=== PATIENT | female | born 1995 | race Caucasian/White ===

== ENCOUNTER → 2018-07-15 12:41 | Outpatient (CLI) | payer OTHER, MEDICAID, SELFPAY ==
--- NOTE | 2018-07-15 12:45 | DI.RAD.S_ITS ---
PROCEDURE: XR TOE LT MIN 2V INDICATIONS: LEFT toe pain TECHNIQUE: 3 views of the fifth toe(s) acquired. COMPARISON: None. FINDINGS: Bones: No fractures or dislocations. No suspicious bony lesions. Bipartite medial sesamoid. Soft tissues: No suspicious soft tissue densities. IMPRESSION: No fracture or dislocation. If clinical symptoms persist or clinical suspicion for pathology is high, a repeat examination in 7-10 days is suggested for further evaluation. Dictated by: Sincere Scott M.D. on 07/15/2018 at 13:25 Approved by: Sincere Scott M.D. on 07/15/2018 at 13:26
== END ==
PROVIDERS: Visit Provider Physician Assistant
DX: M79.675 Pain in left toe(s) (principal)
CPT/HCPCS: 73660

== ENCOUNTER 2018-11-22 20:03 | Emergency (ER) | payer OTHER, MEDICAID, SELFPAY ==
[2018-11-22 20:11] VITALS: BP 133/82; PULSE 89; RESP 18; TEMP 36.9; O2SAT 99
--- NOTE | 2018-11-22 20:17 | ED_ITS ---
HPI - Skin/Abscess/Foreign Bdy <JOSE Mooney - Last Filed: 11/22/18 21:11> General Chief complaint: Skin/Abscess/Foreign Body Stated complaint: spider bite on left leg Time Seen by Provider: 11/22/18 20:03 Source: patient Mode of arrival: ambulatory Limitations: no limitations History of Present Illness HPI narrative: This is a 23-year-old pleasant lady, previoius smoker, without significant medical history presents in chief complaining of left posterior lateral lower leg itching, discomfort, redness, swelling. She thinks this is from a spider bite. However, she had not witnessed seeing spider. Initially, the patient reports left posterior lateral ankle itchiness and she has been using Benadryl cream for this. She noticed progressively worsening with redness, swelling, warmth, some discomfort spreading to mid posterior calf at work this afternoon when she lifted her pants to scratch the area. She denies fever, chills, short of breath, chest pain, nausea or vomiting. She reports her last tetanus immunization was 2-3 years ago. She uses IUD for control method. Related Data Home Medications Medication Instructions Recorded Confirmed levonorgestrel 20 mcg/24 hours (5 INTRAUTERINE each 05/29/18 07/15/18 yrs) 52 mg intrauterine device Previous Rx's Medication Instructions Recorded sulfamethoxazole-trimethoprim 1 tab PO BID 7 Days #14 tab 11/22/18 [Bactrim DS] Allergies Allergy/AdvReac Type Severity Reaction Status Date / Time No Known Drug Allergies Allergy Verified 07/15/18 12:18 Review of Systems <JOSE Mooney - Last Filed: 11/22/18 21:11> Review of Systems General: See HPI HEENT: Denies sinus pain, ear pain, sore throat, difficulty swallowing, dizziness. Respiratory: Denies dyspnea, cough, wheezing, hemoptysis, sputum. Cardiovascular: Denies chest pain, palpitations, orthopnea, edema. Gastrointestinal: Denies nausea, vomiting, abdominal pain, diarrhea, constipation, melena. : Denies dysuria, frequency, incontinence, hematuria, urinary retention. Musculoskeletal: Denies weakness, joint pain or bony pain. Skin: See HPI Neurologic: Denies weakness, headache, numbness, change in speech, confusion, seizures, incoordination. Psychiatric: No concerning psychosocial issues. 12-point review of systems is negative except for those stated above. PFSH <JOSE Mooney - Last Filed: 11/22/18 21:11> Medical History (Updated 11/22/18 @ 20:59 by JOSE Mooney) No significant past medical history (Acute) No significant past surgical history (Acute) Family History (Updated 04/25/15 @ 00:00 by Conversion Provider) Father Age: 44 Mental health problem Grandfather Mental health problem Mother Age: 45 Depression Hypertension Mental health problem Sister Age: 18 Mental health problem Social History (Updated 11/22/18 @ 20:59 by JOSE Mooney) Smoking Status: Former smoker Family History (Updated 04/25/15 @ 00:00 by Conversion Provider) Father Age: 44 Mental health problem Grandfather Mental health problem Mother Age: 45 Depression Hypertension Mental health problem Sister Age: 18 Mental health problem Social History (Updated 11/22/18 @ 20:59 by JOSE Mooney) Smoking Status: Former smoker Exam <JOSE Mooney - Last Filed: 11/22/18 21:11> Narrative Exam Narrative: GEN: Alert, oriented x 3, well appearing and nourished, and in no acute distress. Head: Normal cephalic, atraumatic. No scalp or temporal tenderness. EYES: Pupils are equal, round, and reactive to light and accommodation. Extraocular muscles are intact bilaterally. There is no subconjunctival hemorrhage, exudate and sclera non-icteric. ENT: Hearing grossly intact. Nose without bleeding, purulent discharge. Muco us membrane moist. Neck: Trachea in midline. No JVD, no lymphadenopathy. No masses or thyroid megaly. Supple and no meningeal signs. CARDIAC: Capillary refill is less than 2 seconds. RESPIRATORY: No cough, wheezes, stridor, respiratory distress, increase work of breathing, or accessary muscle used. ABD: Abdomen non-obese and non-distended. EXT: Reports tenderness to palpate from L ankle to mid calf in posterior aspect. Full painless ROM of all extremities with no loss of sensation, strength, effusion or edema. SKIN: Mild erythema, edema, warmth to touch on L lateral posterior leg extending from ankle to bottom of calf and one puncture wound notice with dried serous around it. NEUROLOGICAL: Alert and oriented to place, time and person. Sensation and motor function intact bilaterally. No facial droops, dysphasia. PSYCHIATRIC: Good judgement and reason, without hallucinations, abnormal affect or abnormal behaviors during the examination. Initial Vital Signs Initial Vital Signs: Vital Signs Temperature 98.5 F 11/22/18 20:11 Pulse Rate 89 11/22/18 20:11 Respiratory Rate 18 11/22/18 20:11 Blood Pressure 133/82 11/22/18 20:11 Pulse Oximetry 99 11/22/18 20:11 <Justin Vazquez DO - Last Filed: 11/22/18 22:34> Initial Vital Signs Initial Vital Signs: Vital Signs Temperature 98.5 F 11/22/18 20:11 Pulse Rate 89 11/22/18 20:11 Respiratory Rate 18 11/22/18 20:11 Blood Pressure 133/82 11/22/18 20:11 Pulse Oximetry 99 11/22/18 20:11 Course <JOSE Mooney - Last Filed: 11/22/18 21:11> Orders Ordered: Discontinued Medications Trimethoprim/Sulfamethoxazole (Bactrim Ds) 1 tab PO NOW ONE Stop: 11/22/18 20:26 Last Admin: 11/22/18 20:43 Dose: 1 tab Vital Signs - 8 hr 11/22/18 20:11 Temperature 98.5 F Pulse Rate 89 Respiratory Rate 18 Blood Pressure 133/82 Pulse Oximetry 99 <Justin Vazquez DO - Last Filed: 11/22/18 22:34> Orders Ordered: Discontinued Medications Trimethoprim/Sulfamethoxazole (Bactrim Ds) 1 tab PO NOW ONE Stop: 11/22/18 20:26 Last Admin: 11/22/18 20:43 Dose: 1 tab Vital Signs - 8 hr 11/22/18 20:11 Temperature 98.5 F Pulse Rate 89 Respiratory Rate 18 Blood Pressure 133/82 Pulse Oximetry 99 [facility] - Skin/Abscess/Foreign Bdy <JOSE Mooney - Last Filed: 11/22/18 21:11> Differential Diagnosis Likely cellulitis and insect bites Medical Records Attestation: I reviewed the patient's medical records. [facility] Narrative Medical decision making narrative: This is a pleasant, healthy 23-year-old female who presents with progressively worsening left lower leg redness, pain, swelling for 24 hour period which started as itching sensation. Noticed of tiny puncture wound in the affected site. She thought she was bitten by a spider but did not actually witnessed the bite. She has been using Benadryl cream over the site for itching. She does not have constitutional symptoms at this time. The patient was medicated with Bactrim DS prior discharged to home for early signs of cellulitis possibly from insect bite. Patient was advised to follow up with primary care physician in 3 days for recheck and her symptoms may not improve until she has 2-3 doses of antibiotic medications in her system. However she was advised to monitor for red flag symptoms such as worsening erythema, pain, warmth, fever, chills, numbness tingling, chest pain, breathing trouble, and unable to tolerate fluids and to complete a course of antibiotic medication. She expressed no questions at this time and agrees to the plan of treatment. Discharge Plan Departure Patient Disposition: Home Clinical Impression: Cellulitis Qualifiers: Site of cellulitis: extremity Site of cellulitis of extremity: lower extremity Laterality: left Qualified Code(s): L03.116 - Cellulitis of left lower limb Discharge Date/Time: 11/22/18 20:45 Interventions: ED Discharge Assessment Last Done: 11/22/18 20:44 Instructions: DI for Cellulitis -- Adult, DI for Insect Bites and Stings Activity Restrictions/Additional Instructions: You have been diagnosed with [ cellulitis-skin infection possibly from a spider bite]. What to do: *Take your medications as directed. You're prescription has been faxed to your pharmacy and [facility]. Please complete course of antibiotic medication until it is gone unless it gives 2 allergic reaction. *Follow up with your primary care provider at [facility] clinic in 2-3 days, call for an appointment. Let them know you were seen in the ED and that we asked you to be seen in follow up. *Return to ED if you have any new, worsening, or concerning symptoms, such as [chest pain, difficulty breathing, fever, chills, unable to tolerate fluids, worsening pain/redness/warmth, pus-like discharge or any other acute concerns]. Prescriptions: New sulfamethoxazole-trimethoprim [Bactrim DS] 800-160 mg tablet 1 tab PO BID 7 Days Qty: 14 RF: 0 No Action levonorgestrel [Mirena] 20 mcg/24 hr (5 years) intrauterine device Intrauterine RF: 0 <Justin Vazquez, - Last Filed: 11/22/18 22:34> Cosign ED Attending Cosignature Attestation: I was available for consultation during this patient's emergency department encounter
[2018-11-22] MEDS: TRIMETH/SULFA 160/800 (DS) TABLET 1 TAB PO (20:43)
== END 2018-11-22 20:45 | disposition home or self-care (01) ==
PROVIDERS: Emergency Provider Nurse Practitioner Family
DX: L03.116 Cellulitis of left lower limb (principal)
CPT/HCPCS: 99282; 99283

== ENCOUNTER 2020-03-28 19:01 | Emergency (ER) | payer SELFPAY ==
[2020-03-28 19:05] VITALS: BP 114/61; PULSE 71; RESP 14; TEMP 36.8; O2SAT 100; BMI 21.9
--- NOTE | 2020-03-28 19:10 | DI.RAD.S_ITS ---
PROCEDURE: XR CHEST 1V INDICATIONS: chest pain TECHNIQUE: One view of the chest was acquired. COMPARISON: None. FINDINGS: Surgical changes and devices: None. Lungs and pleura: Lungs are clear. No pleural effusions or pneumothorax. Mediastinum: Mediastinal contours appear normal. Heart size is normal. Bones and chest wall: No suspicious bony lesions. Overlying soft tissues appear unremarkable. IMPRESSION: No acute cardiopulmonary pathology. Dictated by: Nathaniel Simon M.D. on 03/28/2020 at 19:36 Approved by: Nathaniel Simon M.D. on 03/28/2020 at 19:39
[2020-03-28 19:39] LABS: Add Manual Diff / Slide Review NO; Basophils Absolute Auto 0 /uL (0-100); Basophils Percent Auto 0.4 % (0-2); Eosinophils Absolute Auto 100 /uL (0-450); Eosinophils Percent Auto 0.6 % (2-4); Hematocrit 34.8 % (36-46); Hemoglobin 11.9 g/dL (12.0-16.0); Lymphocytes Absolute Auto 2400 /uL (1100-4500); Lymphocytes Percent Auto 29.4 % (25-40); Mean Corpuscular HGB Conc 34.3 % (30-36); Mean Corpuscular Hemoglobin 29.7 PG (26-34); Mean Corpuscular Volume 86.7 fL (80-100); Monocytes Absolute Auto 400 /uL (0-900); Monocytes Percent Auto 4.8 % (3-14); Neutrophils Absolute Auto 5200 /uL (1500-7000); Neutrophils Percent Auto 64.8 % (50-75); Platelet Count 276 X10^3/uL (150-400); Red Blood Cell Count 4.02 X10^6/uL (4.0-5.2); Red Cell Distribution Width 12.9 % (11.6-14.8)
[2020-03-28 19:47] LABS: INR 1.2 (0.9-1.3)
[2020-03-28 19:49] LABS: PTT Partial Thromboplastin Tim 32 SECONDS (26.4-36.2)
[2020-03-28 19:51] LABS: Alanine Aminotransferase 11 IU/L (<35); Albumin 4.4 g/dL (3.5-5.0); Albumin Globulin Ratio 1.4 (1.0-2.8); Alkaline Phosphatase 54 U/L (38-126); Aspartate Aminotransferase 21 IU/L (14-36); BUN Creatinine Ratio 27.1 (6-22); Bilirubin Total 0.7 mg/dL (0.2-1.3); Blood Urea Nitrogen 16 mg/dL (7-17); Carbon Dioxide 26 mmol/L (22-32); Chloride 107 mmol/L (98-107); Creatine Kinase 71 U/L (30-135); Estimated Glomerular Filt Rate > 60.0 mL/min (>60); Globulin 3.1 g/dL (1.7-4.1); Glucose 106 mg/dL (70-100); HEMOLYSIS < 15 (0-50); Lipase 29 U/L (23-300); Potassium 3.1 mmol/L (3.4-5.1); Sodium 139 mmol/L (137-145); Total Protein 7.5 g/dL (6.3-8.2)
[2020-03-28 20:02] LABS: Troponin I < 0.012 ng/mL (0.01-0.034)
--- NOTE | 2020-03-28 20:44 | ED_ITS ---
HPI - Chest Pain General Chief Complaint: Chest Pain Stated Complaint: Chest Pain for 3 Days Time Seen by Provider: 03/28/20 20:07 Source: patient Mode of arrival: Ambulatory Limitations: no limitations History of Present Illness HPI narrative: 25-year-old female here for evaluation of left-sided chest discomfort. She states is been off and on for the past 3 days. She does have a history of anxiety but thinks this feels different. Chest pain not worse with palpation or movement. States it is somewhat worse with taking a deep breath but she is not short of breath. No lower extremity swelling. No cough. No fevers. Related Data Home Medications Medication Instructions Recorded Confirmed levonorgestrel 20 mcg/24 hours (6 INTRAUTERINE each 05/29/18 07/15/18 yrs) 52 mg intrauterine device Allergies Allergy/AdvReac Type Severity Reaction Status Date / Time No Known Drug Allergies Allergy Verified 03/28/20 19:05 Review of Systems Constitutional Constitutional: Denies fever(s) Cardiovascular Cardiovascular: Reports chest pain and Denies dyspnea Respiratory Respiratory: Reports pain on inspiration and Denies dyspnea Gastrointestinal Gastrointestinal: Denies abdominal pain, Denies change in bowel habits, Denies nausea and Denies vomiting Genitourinary Genitourinary: Denies dysuria Genitourinary: Denies dysuria Musculoskeletal Musculoskeletal: Denies arthralgias and Denies myalgias Integumentary/Breasts Skin/Breast: Denies lesions and Denies rash Neurologic Neurologic: Denies behavioral changes Psychiatric Psychiatric: Denies behavioral changes Hematologic/Lymphatic Hematologic/Lymphatic: Denies easy bleeding and Denies easy bruising Allergic/Immunologic Allergic/Immunologic: Denies urticaria Patient History Medical History No significant past medical history Surgical History (Updated 11/22/18 @ 20:59 by JOSE Mooney) No significant past surgical history Family History (Updated 04/25/15 @ 00:00 by Conversion Provider) Father Age: 45 Mental health problem Grandfather Mental health problem Mother Age: 46 Depression Hypertension Mental health problem Sister Age: 19 Mental health problem Social History Smoking Status: Current every day smoker Smoking Status: Current every day smoker tobacco type: vaping alcohol intake frequency: holidays/special occasions only Substance Use Type: does not use Exam Initial Vital Signs Initial Vital Signs: Vital Signs Temperature 98.3 F 03/28/20 19:05 Pulse Rate 71 03/28/20 19:05 Respiratory Rate 14 03/28/20 19:05 Blood Pressure 114/61 03/28/20 19:05 Pulse Oximetry 100 03/28/20 19:05 Const General: cooperative, comfortable and well developed Limitations: mental status not altered HENMT Head: normal to inspection and normocephalic Chest Chest: No crepitus and No tenderness Resp Effort & Inspection: normal respiratory effort Auscultation: clear to auscultation bilaterally Cardio Rate: regular rate Rhythm: regular rhythm GI Inspection: non-distended Palpation: soft Skin Lesions: no lesions Rashes: no rashes Neuro General: patient alert, patient awake and patient oriented x3 Cognition: normal cognition Speech: speech normal Extrem General: normal to inspection and capillary refill normal Psych Appearance: grossly normal and well kempt Scores GCS Snow coma scale eye opening: Spontaneous Jackson coma scale verbal response: Orientated Snow coma scale motor response: Obey commands Jackson coma scale total score: 15 PERC Score Age greater than or equal to 50 years: No Heart rate greater than or equal to 100 bpm: No Room Air O2 Sat less than 95%: No Unilateral leg swelling: No Recent trauma or surgery: No Hemoptysis: No Prior PE or DVT: No Hormone Use: No Total PERC Score: 0 Course Orders Ordered: ED Orders 03/28/20 19:10 XR chest 1V Stat EKG-12 Lead Stat 03/28/20 19:30 Complete Blood Count AUTO DIFF Stat Comprehensive Metabolic Panel Stat Lipase Stat Partial Thromboplastin Time Stat Prothrombin Time INR Stat Troponin & CK Cardiac Panel Stat Vital Signs Vital signs: Vital Signs - 8 hr 03/28/20 19:05 Temperature 98.3 F Pulse Rate 71 Respiratory Rate 14 Blood Pressure 114/61 Pulse Oximetry 100 MDM - Chest Pain Lab Data Attestation: I reviewed the patient's lab results. Result diagrams: 03/28/20 19:30 03/28/20 19:30 Labs: Lab Results 03/28/20 03/28/20 03/28/20 Range/Units 19:30 19:30 19:30 WBC 8.0 (4.5-11.0) X10^3/uL RBC 4.02 (4.0-5.2) X10^6/uL Hgb 11.9 L (12.0-16.0) g/dL Hct 34.8 L (36-46) % MCV 86.7 (80-100) fL MCH 29.7 (26-34) PG MCHC 34.3 (30-36) % RDW 12.9 (11.6-14.8) % Plt Count 276 (150-400) X10^3/uL Neut % (Auto) 64.8 (50-75) % Lymph % (Auto) 29.4 (25-40) % [place]k % (Auto) 4.8 (3-14) % Eos % (Auto) 0.6 L (2-4) % Baso % (Auto) 0.4 (0-2) % Neut # (Auto) 5200 (0837-2401) /uL Lymph # (Auto) 2400 (3477-7280) /uL Polk # (Auto) 400 (0-900) /uL Eos # (Auto) 100 (0-450) /uL Baso # (Auto) 0 (0-100) /uL PT 14.0 H (10.1-12.7) SECONDS INR 1.2 (0.9-1.3) APTT 32 (26.4-36.2) SECONDS Sodium 139 (137-145) mmol/L Potassium 3.1 L (3.4-5.1) mmol/L Chloride 107 (98-107) mmol/L Carbon Dioxide 26 (22-32) mmol/L BUN 16 (7-17) mg/dL Creatinine 0.59 (0.52-1.04) mg/dL Estimated GFR > 60.0 (>60) mL/min BUN/Creatinine Ratio 27.1 H (6-22) Glucose 106 H (70-100) mg/dL Calcium 9.0 (8.4-10.2) mg/dL Total Bilirubin 0.7 (0.2-1.3) mg/dL AST 21 (14-36) IU/L ALT 11 (<35) IU/L Alkaline Phosphatase 54 (38-126) U/L Total Creatine Kinase 71 (30-135) U/L CK-MB (CK-2) TNP CK-MB (CK-2) Rel Index TNP Troponin I < 0.012 (0.01-0.034) ng/mL Total Protein 7.5 (6.3-8.2) g/dL Albumin 4.4 (3.5-5.0) g/dL Globulin 3.1 (1.7-4.1) g/dL Albumin/Globulin Ratio 1.4 (1.0-2.8) Lipase 29 (23-300) U/L Point of Care Testing Test Results Negative Urine Dip Bedside Urine Glucose Negative Bedside Urine Bilirubin - Negative Bedside Urine Ketone + 15 Urine Specific [place] 1.025 Bedside Urine Occult Blood - Negative Bedside Urine pH 6.0 Bedside Urine Protein - Negative Bedside Urine Urobilinogen - Negative Bedside Urine Nitrite - Negative Bedside Urine Leukocytes - Negative Esterase Imaging Data Chest x-ray: Radiologist's Impression: [address] [id number] ReportSigned Patient: Alecia Moser [facility]#: [id number]: 1995Acct:[id number]/Sex: 25 / FDate of Service: 03/28/20Loc: EDAccession Number: [id number] Procedure: XR chest 1V Ordering Provider: Justin Vazquez D.O. PROCEDURE: XR CHEST 1V INDICATIONS: chest pain TECHNIQUE: One view of the chest was acquired. COMPARISON: None. FINDINGS: Surgical changes and devices: None. Lungs and pleura: Lungs are clear. No pleural effusions or pneumothorax. Mediastinum: Mediastinal contours appear normal. Heart size is normal. Bones and chest wall: No suspicious bony lesions. Overlying soft tissues appear unremarkable. IMPRESSION: No acute cardiopulmonary pathology. Dictated by: Nathaniel Simon M.D. on 03/28/2020 at 19:36 Approved by: Nathaniel Simon M.D. on 03/28/2020 at 19:39 ECG Data Attestation: I personally reviewed and interpreted this ECG as follows: Prior ECG tracings: not available for review Interpretation: Sinus rhythm Ventricular rate is 76 Normal axis Normal QRS Normal QTC No ST T wave changes MDM Narrative Medical decision making narrative: Chest x-ray an EKG is unremarkable. Low suspicion for ACS. No indication for antibiotics. No signs of pneumonia. Perc score is 0. Will hold on further workup here in the ER. I suspicion for anxiety based on her history and physical. She was given return precautions and follow- up instructions. She expressed understanding and agreement. Discharge Plan Departure Patient Disposition: Home Clinical Impression: Atypical chest pain Instructions: DI for Atypical Chest Pain Activity Restrictions/Additional Instructions: Recommend you contact your primary provider for a follow-up. Return to the emergency department for any new or worsening symptoms Prescriptions: No Action levonorgestrel [Mirena] 20 mcg/24 hr (5 years) intrauterine device Intrauterine RF: 0
== END 2020-03-28 20:56 | disposition home or self-care (01) ==
PROVIDERS: Emergency Provider Emergency Medicine
DX: R07.89 Other chest pain (principal)
CPT/HCPCS: 36415; 71045; 80053; 81003; 81025; 82550; 83690; 84484; 85025; 85610; 85730; 93005; 99283; 99284